=== PATIENT | female | born 1985 | race Caucasian/White ===

== ENCOUNTER 2020-10-03 19:17 | Inpatient (IN) ==
[2020-10-03] MEDS ORDERED: CAPTOPRIL 12.5 MG TABLET PO PRN (20:27)
[2020-10-03] MEDS ORDERED: LABETALOL 5 MG/ML ML IV ONE (20:28)
[2020-10-03] MEDS ORDERED: 0.9 % SODIUM CHLORIDE 1,000 ML IV ONE (20:41)
[2020-10-03] MEDS ORDERED: CAPTOPRIL 12.5 MG TABLET PO SCH (21:00)
[2020-10-03] MEDS ORDERED: CAPTOPRIL 12.5 MG TABLET PO ONE (21:14)
[2020-10-03 21:31] LABS: Basophils # (Auto) 0.04 K/mcL (0.00-0.20); Basophils % (Auto) 0.4 % (0.0-2.0); Hematocrit 38.6 % (36.0-48.0); Hemoglobin 13.9 g/dL (12.0-15.0); Lymphocytes # (Auto) 2.37 K/mcL (1.50-4.80); Lymphocytes % (Auto) 23.9 % (15.0-49.0); Mean Cell Volume 91.5 fL (80.0-100.0); Mean Platelet Volume 10.1 fL (7.4-10.4); Monocytes % (Auto) 7.1 % (1.0-12.0); Neutrophils % (Auto) 67.6 % (38.0-78.0); Platelet Count 368 K/mcL (140-440); RBC 4.22 M/mcL (4.00-5.20); Red Cell Distribution Width 13.6 % (11.5-14.5); WBC 9.9 K/mcL (4.5-11.0)
[2020-10-03 21:35] LABS: Appearance,Urine CLEAR (Clear); Bilirubin,Urine Negative (Negative); Color,Urine STRAW; Culture Indicated,Urine No; Glucose,Urine (UA) Negative (Negative); Ketones,Urine 20 mg/dL (Negative); Leukocyte Esterase,Urine Negative /ug (Negative); Nitrate,Urine Negative (Negative); Protein,Urine Negative (Negative); Specific Gravity,Urine 1.004 (1.000-1.035); Urine Blood Negative (Negative); Urobilinogen,Urine Negative
--- NOTE | 2020-10-03 21:43 | Internal Med History&Physical ---
HPI History of Present Illness Patient information: Note initiated : 10/03/20 at 9:41 pm Service Date, if different from initiated Date: [] Patient: Yulissa Kern a 34 y/o F admitted on for racing heart all day. Chief Complaint: [lightheadedness and palpitation] History of present illness: Ms. Kern is a 34 year old F history of ADD and recently diagnosed scleroderma presenting with 1 day history of palpitations, lightheadedness and dizziness. Over the past 2 days, she have noticed both her blood pressure and heart rate rate very elevated. She has been also feeling lightheadedness, dizziness, and palpitations for the entirety of today. She denies any chest pain. She has been noticed herself to be taking rapid short of breath. Due to her symptoms, she presented to Dr. Gimenez her manager utilization management and she was told to come to our ER for further evaluation and treatments. Vital signs significant for tachycardia with heart rate up to the 150s beats per minutes as well as elevated blood pressures as high as 180/107 mmHg. Labs were pending at time of dictations. Constitutional Constitutional: Present fatigue and weakness; Absent chills, excessive sweating and fever(s) EENT Eyes: Absent blurry vision, change in vision, loss of vision and other visual d isturbances Ears: Absent decreased hearing and tinnitus Nose, mouth and throat: Absent abnormal hearing, dry mouth, headache(s), nasal congestion and sore throat Cardiovascular Cardiovascular: Present lightheadedness and palpatations; Absent chest pain, chest pain at rest, edema and irregular heart rhythm Respiratory Respiratory: Absent cough, dyspnea and wheezing Gastrointestinal Gastrointestinal: Absent abdominal pain, constipation, diarrhea, nausea and v omiting Musculoskeletal Musculoskeletal: Absent back pain, deformity, limited range of motion, muscle cramps, muscle weakness and numbness Integumentary Integumentary: Absent lesions, rash and wounds Neurological Neurological: Present dizziness and weakness; Absent focal weakness, headache(s) and numbness Psychiatric Psychiatric: Absent anxiety, depression and hallucinations PFSH PFSH All Active Problems (Updated 10/03/20 @ 21:48 by Nathaniel Scott MD) Tachycardia with hypertension (Acute) Hypertension (Acute) Fatigue (Acute) Seasonal allergies (Chronic) ADD (attention deficit disorder) (Chronic) Screening for lipid disorders (Acute) Influenza vaccine refused (Chronic) Adjustment disorder with mixed anxiety and depressed mood (Chronic) Carpal tunnel syndrome (Acute) Joint pain (Acute) Finger swelling (Acute) Finger dislocation (Acute) Hemorrhoid (Acute) Rectal leakage (Acute) Lower extremity edema (Acute) Discolored skin (Acute) Weakness of pelvic floor (Acute) Elevated antinuclear antibody (JACOB) level (Acute) Inflammatory polyarthritis (Acute) Encounter for long-term current use of high risk medication (Acute) Elevated blood pressure reading in office with diagnosis of hypertension (Acute) Scleroderma (Acute) Leg weakness, bilateral (Acute) Raynaud phenomenon (Acute) Dysuria (Acute) Medical History ADD (attention deficit disorder) 05/22/19 PHQ 9=13. ASRS , . Suspect ADD, discussed with patient, plan to check labs today and follow-up in 1 week to discuss medication options 05/29/19 PHQ 9=19. Deteriorated, discussed discussed options including Strattera, Wellbutrin, stimulant medication, she is leaning toward Wellbutrin, we discussed use, rationale and side effects. She will discuss with her and get back to me 06/26/2019 improved with Strattera 25, continue, discussed increasing dose when she feels appropriate, follow-up 4 to 6 weeks, sooner if needed 07/31/2019 improved and stable on 10 mg of Strattera, she would at some point consider going up on the dose should the 10 mg stop working, we will discussed that if the time occurs. Follow-up in 3 months for physical and follow-up on ADD, follow-up sooner for concerns or questions 10/29/2019 stable on Strattera 10, continue dose and follow-up next available Sunday for physical 11/14/2019 stable on Strattera 10, follow-up after the end of the semester, sooner if needed 03/19/2020. Deteriorated slightly, start Strattera twice a day, discussed possible side effects, follow-up 6 months, sooner if needed 05/21/2020 stable on Strattera 10 twice a day, refilled, keep scheduled follow-up appointment for 08/12/2020 okay to take Strattera twice a day as before, do not believe this is causing/contributing elevated blood pressure Carpal tunnel syndrome Encounter for long-term current use of high risk medication Joint pain 06/22/2020 check labs, discussed differential, consult with rheumatology Leg weakness, bilateral Raynaud phenomenon Scleroderma Raynaud's syndrome, positive biomarkers. No evidence of Raynaud's crisis. Seasonal allergies Vaginal discharge Surgical History No pertinent past surgical history Family History Family/Other Arthritis Aunt ADD (attention deficit disorder) Cousin Grandmother Diabetes Maternal & Paternal Stroke Paternal Brother High blood pressure Father High blood pressure Grandfather Heart attack Paternal Son ADD (attention deficit disorder) Social History adopted: No caregiver/support person: No foster care: No household members: family housing: house lives independently: Yes marital status: education level: college service: No residential: No occupational status: employed and other occupation: SAHM/Substitute occupational exposures/hazards: No pets and animals: Yes pets and animals: dog(s) leisure activities: exercise hx recent travel: No sexually active: Yes smoking status: Never smoker alcohol intake frequency: does not drink substance use type: does not use MEDS/ALLERGIES Home Medications and Allergies Home Medications Medication Instructions Recorded Confirmed Type multivitamin 2 tab PO QAM tab 05/19/19 09/23/20 History [id number] vegatarian capsulse .ROUTE 07/15/20 09/23/20 History triamcinolone acetonide 55 mcg 1 spray INTRANASAL QDAY PRN 09/02/20 09/23/20 History nasal spray aerosol atomoxetine 10 mg capsule 10 mg PO QAM #60 cap 09/10/20 09/23/20 Rx mycophenolate mofetil 500 mg tablet See Rx Instructions .ROUTE 09/15/20 09/23/20 Rx .COMPLEX #120 tab omega-3 fatty acids 1,000 mg 1,000 mg PO QDAY 09/15/20 09/23/20 History capsule captopril 25 mg tablet 12.5 mg PO Q12H #90 tab 10/03/20 Rx Allergies Allergy/AdvReac Type Severity Reaction Status Date / Time cat dander Allergy Unknown itchy Verified 10/03/20 19:20 eyes, nose, throat copper Allergy Unknown rash Verified 10/03/20 19:20 Nickel Allergy Unknown rash Verified 10/03/20 19:20 EXAM Constitutional Vitals: Temp Pulse Resp BP Pulse Ox 36.8 C 93 H 17 137/98 98 10/03/20 19:17 10/03/20 21:16 10/03/20 21:16 10/03/20 21:16 10/03/20 21:16 General appearance: cooperative and no acute distress Head Head exam: Present atraumatic and normocephalic Eye Eye exam: Present EOMI and PERRL ENT ENT exam: Present mucous membranes moist, normal exam and normal external ear exam Neck Neck exam: Present normal inspection; Absent lymphadenopathy, tenderness and thyromegaly Respiratory Respiratory exam: Absent accessory muscle use, respiratory distress and wheezes Cardiovascular Cardiovascular exam: Present tachycardia; Absent JVD GI/Abdominal GI/Abdominal exam: Present normal bowel sounds and soft; Absent organomegaly and tenderness Extremities Exam Extremities exam: Present full ROM, normal capillary refill and normal inspection; Absent tenderness Neurological Exam Neurological exam: Present alert, CN II-XII intact and oriented X3; Absent motor sensory deficit Psychiatric Psychiatric exam: Present normal affect and normal mood; Absent anxious and depr essed Skin Skin exam: Present dry and intact Additional comments: thciken skins especially around her fingers DATA Data Completed and Pending Labs: Labs from last 24 hours 10/03/20 10/03/20 10/03/20 20:57 20:57 20:56 WBC RBC Hgb Hct MCV MCH MCHC RDW Plt Count MPV Neut % (Auto) Lymph % (Auto) [place] % (Auto) Eos % (Auto) Baso % (Auto) Lymph # (Auto) [place] # (Auto) Eos # (Auto) Baso # (Auto) Absolute Neutrophils Sodium Potassium Chloride Carbon Dioxide Anion Gap BUN Creatinine GFR Calculation Glucose Calcium Total Bilirubin AST ALT Alkaline Phosphatase Troponin T Total Protein Albumin Globulin Albumin/Globulin Ratio Urine Color Straw Urine Appearance Clear Urine pH 7.0 Ur Specific [place] 1.004 Urine Protein Negative Urine Glucose (UA) Negative Urine Ketones 20 A Urine Occult Blood Negative Urine Nitrate Negative Urine Bilirubin Negative Urine Urobilinogen Negative Ur Leukocyte Esterase Negative Ur Culture Indicated? No Ur Random Creatinine Pending U Random Total Protein Pending 0710/03/20 10/03/20 20:35 20:35 20:35 WBC 9.9 RBC 4.22 Hgb 13.9 Hct 38.6 MCV 91.5 MCH 32.9 MCHC 36.0 RDW 13.6 Plt Count 368 MPV 10.1 Neut % (Auto) 67.6 Lymph % (Auto) 23.9 [place] % (Auto) 7.1 Eos % (Auto) 1.0 Baso % (Auto) 0.4 Lymph # (Auto) 2.37 [place] # (Auto) 0.70 Eos # (Auto) 0.10 Baso # (Auto) 0.04 Absolute Neutrophils 6.71 Sodium TNP Potassium TNP Chloride TNP Carbon Dioxide TNP Anion Gap TNP BUN TNP Creatinine TNP GFR Calculation TNP Glucose TNP Calcium TNP Total Bilirubin TNP AST TNP ALT TNP Alkaline Phosphatase TNP Troponin T TNP Total Protein TNP Albumin TNP Globulin TNP Albumin/Globulin Ratio TNP Urine Color Urine Appearance Urine pH Ur Specific [place] Urine Protein Urine Glucose (UA) Urine Ketones Urine Occult Blood Urine Nitrate Urine Bilirubin Urine Urobilinogen Ur Leukocyte Esterase Ur Culture Indicated? Ur Random Creatinine U Random Total Protein A/P Assessment and plan (1) ADD (attention deficit disorder): Status: Chronic Comment: 05/22/19 PHQ 9=13. ASRS , . Suspect ADD, discussed with patient, plan to check labs today and follow-up in 1 week to discuss medication options 05/29/19 PHQ 9=19. Deteriorated, discussed discussed options including Strattera, Wellbutrin, stimulant medication, she is leaning toward Wellbutrin, we discussed use, rationale and side effects. She will discuss with her and get back to me 06/26/2019 improved with Strattera 25, continue, discussed increasing dose when she feels appropriate, follow-up 4 to 6 weeks, sooner if needed 07/31/2019 improved and stable on 10 mg of Strattera, she would at some point consider going up on the dose should the 10 mg stop working, we will discussed that if the time occurs. Follow-up in 3 months for physical and follow-up on ADD, follow-up sooner for concerns or questions 10/29/2019 stable on Strattera 10, continue dose and follow-up next available [place] for physical 11/14/2019 stable on Strattera 10, follow-up after the end of the semester, sooner if needed 03/19/2020. Deteriorated slightly, start Strattera twice a day, discussed possible side effects, follow-up 6 months, sooner if needed 05/21/2020 stable on Strattera 10 twice a day, refilled, keep scheduled follow-up appointment for 08/12/2020 okay to take Strattera twice a day as before, do not believe this is causing/contributing elevated blood pressure (2) Scleroderma: Status: Acute Comment: Raynaud's syndrome, positive biomarkers. No evidence of Raynaud's crisis. (3) Hypertension: Status: Acute (4) Tachycardia with hypertension: Status: Acute Narrative A/P Narrative: Assessment and Plans: 1. Scleroderma with hypertension and tachycardia: Admit to inpatient PCU with cardiac monitoring Consult gilberto Patino. appreciated Metoprolol tartrate 100mg PO BID scheduled Lopressor 5mg IV q5min PRN HR>=120bpm, hold if SBP<90 and/or DBP<50mmHg Captopril 12.5mg PO q8hr Continue CellCept 2. ADD: Continue Atomoxetine GI ppx: not currently indicated DVT ppx: Lovenox Code status: Full Prognosis: guarded Disposition: inpatient PCU Time Spent With Patient Time: Total time spent is greater than 50% in coordination of care (as documen omer) at patient's floor/unit and/or counseling patient: Total time spent with greater than 50% in coordination of care (as documented) at patient's floor/unit and/or counseling patient:: 25 - 35 minutes
[2020-10-03] MEDS ORDERED: SENNOSIDES 1 TABLET PO PRN (22:22)
[2020-10-03] MEDS ORDERED: ONDANSETRON 4 MG/2 ML VIAL IV PRN (22:22)
[2020-10-03] MEDS ORDERED: METOPROLOL TARTRATE 5 MG/5 ML VIAL IV PRN (22:22)
[2020-10-03] MEDS ORDERED: LACTULOSE 20 GM/30 ML ORAL.SOL PO PRN (22:22)
[2020-10-03] MEDS ORDERED: ACETAMINOPHEN 325 MG TABLET PO PRN (22:22)
[2020-10-03 22:26] LABS: ALT/SGPT 15 U/L (<40); AST/SGOT 18 U/L (<32); Albumin 3.5 gm/dL (3.2-5.2); Albumin/Globulin Ratio 1.5 (1.0-2.3); Alkaline Phosphatase 65 U/L (39-117); Bilirubin,Total 0.3 mg/dL (0.1-1.0); Blood Urea Nitrogen 10 mg/dL (6-20); Calcium 8.2 mg/dL (8.6-10.4); Carbon Dioxide 23 mmol/L (22-30); Chloride 103 mmol/L (96-108); Globulin 2.3 gm/dL (2.2-3.7); Glomerular Filtration Rate 112; Glucose 97 mg/dL (70-105)
--- NOTE | 2020-10-03 22:33 | Emergency Department Note ---
Arrhythmia/Palpitations HPI General Chief Complaint: Arrhythmia/Palpitations Stated Complaint: racing heart all day Time Seen by Provider: 10/03/20 19:50 Source: patient Mode of arrival: ambulatory Limitations: no limitations History of Present Illness HPI Narrative: Narrative: 34-year-old female presents emerged department accompanied by a friend who is a nurse because of tachycardia and hyper per tension. Patient states that she was diagnosed with diffuse scleroderma 8 weeks ago perhaps longer. She has been treated for hypertension due to this by Dr. Gimenez ([phone]). She is followed by the principal trainer Dr. Ingris last ([phone]). Her blood pressure has been in the acceptable range but today she woke up and had a blood pressure of 203/133. She felt dizzy with that. She said she felt lightheaded, tired, fatigued and that her heart was racing. Her heart rate went up as fast as 153 at home. She describes her discomfort as a 5 on a 0-to-10 scale. Stated it was constant throughout the day. Nothing made it better or worse. She presents for further evaluation. MD Complaint: "heart racing" Duration: constant Severity: moderate Context: occurred during rest Related Data Home Medications Medication Instructions Recorded Confirmed multivitamin 1 tab PO QAM tab 05/19/19 10/03/20 triamcinolone acetonide 55 mcg 1 spray INTRANASAL QDAY PRN 09/02/20 10/03/20 nasal spray aerosol Previous Rx's Medication Instructions Recorded atomoxetine 10 mg capsule 10 mg PO QAM #60 cap 09/10/20 mycophenolate mofetil 500 mg tablet See Rx Instructions .ROUTE 09/15/20 .COMPLEX #120 tab captopril 25 mg tablet 12.5 mg PO Q12H #90 tab 10/03/20 Allergies Allergy/AdvReac Type Severity Reaction Status Date / Time cat dander Allergy Unknown itchy Verified 10/03/20 19:20 eyes, nose, throat copper Allergy Unknown rash Verified 10/03/20 19:20 Nickel Allergy Unknown rash Verified 10/03/20 19:20 Review of Systems ROS ROS Narrative: Narrative: Constitutional: Denies fever ENT ED: Denies throat pain Cardiovascular: Reports palpitations (Rapid heart rate.) Respiratory: Denies shortness of breath Gastrointestinal: Denies abdominal pain Genitourinary: Denies dysuria Musculoskeletal: Denies back pain Integumentary: Denies rash Neurological: Denies headache Psychiatric: Reports anxiety Hematological/Lymphatic: Denies easy bleeding PFSH Narrative Patient History Narrative: Narrative: Medical/Surgical/Family History All Active Problems (Updated 10/04/20 @ 09:01 by Mak Haddad MD) Hypertension (Acute) Tachycardia (Acute) Tachycardia with hypertension (Acute) Hypertension (Acute) Fatigue (Acute) Seasonal allergies (Chronic) ADD (attention deficit disorder) (Chronic) Screening for lipid disorders (Acute) Influenza vaccine refused (Chronic) Adjustment disorder with mixed anxiety and depressed mood (Chronic) Carpal tunnel syndrome (Acute) Joint pain (Acute) Finger swelling (Acute) Finger dislocation (Acute) Hemorrhoid (Acute) Rectal leakage (Acute) Lower extremity edema (Acute) Discolored skin (Acute) Weakness of pelvic floor (Acute) Elevated antinuclear antibody (JACOB) level (Acute) Inflammatory polyarthritis (Acute) Encounter for long-term current use of high risk medication (Acute) Elevated blood pressure reading in office with diagnosis of hypertension (Acute) Scleroderma (Acute) Leg weakness, bilateral (Acute) Raynaud phenomenon (Acute) Dysuria (Acute) Medical History ADD (attention deficit disorder) 05/22/19 PHQ 9=13. ASRS , . Suspect ADD, discussed with patient, plan to check labs today and follow-up in 1 week to discuss medication options 05/29/19 PHQ 9=19. Deteriorated, discussed discussed options including Strattera, Wellbutrin, stimulant medication, she is leaning toward Wellbutrin, we discussed use, rationale and side effects. She will discuss with her and get back to me 06/26/2019 improved with Strattera 25, continue, discussed increasing dose when she feels appropriate, follow-up 4 to 6 weeks, sooner if needed 07/31/2019 improved and stable on 10 mg of Strattera, she would at some point consider going up on the dose should the 10 mg stop working, we will discussed that if the time occurs. Follow-up in 3 months for physical and follow-up on ADD, follow-up sooner for concerns or questions 10/29/2019 stable on Strattera 10, continue dose and follow-up next available Sunday for physical 11/14/2019 stable on Strattera 10, follow-up after the end of the semester, sooner if needed 03/19/2020. Deteriorated slightly, start Strattera twice a day, discussed possible side effects, follow-up 6 months, sooner if needed 05/21/2020 stable on Strattera 10 twice a day, refilled, keep scheduled follow-up appointment for 08/12/2020 okay to take Strattera twice a day as before, do not believe this is causing/contributing elevated blood pressure Carpal tunnel syndrome Encounter for long-term current use of high risk medication Joint pain 06/22/2020 check labs, discussed differential, consult with rheumatology Leg weakness, bilateral Raynaud phenomenon Scleroderma Raynaud's syndrome, positive biomarkers. No evidence of Raynaud's crisis. Seasonal allergies Vaginal discharge Surgical History No pertinent past surgical history Family History Family/Other Arthritis Aunt ADD (attention deficit disorder) Cousin Grandmother Diabetes Maternal & Paternal Stroke Paternal Brother High blood pressure Father High blood pressure Grandfather Heart attack Paternal Son ADD (attention deficit disorder) Social History Smoking Status: Never smoker Alcohol Intake Frequency: does not drink Substance Use: does not use Exam Narrative Narrative: Narrative: General Limitations: no limitations General appearance: Present alert and in distress Head Head: Present atraumatic and normocephalic Eye Eye: Present EOMI ENT ENT: Present normal oropharynx and mucous membranes moist Neck Neck: Present trachea midline Respiratory Respiratory: Present normal lung sounds bilaterally; Absent respiratory distress Cardiovascular Cardiovascular: Present tachycardia Adbominal Abdominal: Present soft; Absent distention Extremities Extremities: Present normal inspection Back Back: Present normal inspection Neurological Neurological: Present alert and oriented X3 Psychiatric Psychiatric: Present normal affect and normal mood Skin Skin: Present warm (WNL) and dry Course Reevaluation(s) Reevaluation #1: After the IV labetalol the patient's blood pressure came down into the 130s over 100 range. It seemed to stay in that range and did not req uire an additional dose. Consultations Consultation #1: Discussed with Dr. Juarez the hospitalist who agreed to admit the patient. He requested that I perform a urine tox screen which I ordered at his request. Vital Signs Vital signs: Vital Signs Temperature 98.2 F 10/03/20 19:17 Pulse Rate 153 H 10/03/20 19:17 Respiratory Rate 24 H 10/03/20 19:17 Blood Pressure 174/107 10/03/20 19:17 Pulse Oximetry (%) 100 10/03/20 19:17 Temperature 97.9 F 10/04/20 08:00 Pulse Rate 89 10/04/20 08:00 Respiratory Rate 16 10/04/20 08:00 Blood Pressure 129/99 10/04/20 08:00 Pulse Oximetry (%) 99 10/04/20 08:00 MDM MDM Narrative Medical decision making narrative: Narrative: 34-year-old female presents emerged department with tachycardia and elevated blood pressure. Patient recently diagnosed with diffuse scleroderma and being managed for this in part by Dr. Gimenez. Differential diagnosis could include substance abuse, dehydration, anemia, renal artery disease. I called Dr. Gimenez and discussed the case with him. He raised the concern that the patient could be going into scleroderma crisis which can cause acute renal failure and proteinuria he advised that the patient be admitted to the hospital. He recommended the patient be given beta-blockers to bring down the heart rate. He advised captopril 12.5 mg p.o. every 8 hours. He requested a UA be obtained as well as a random urine protein creatinine ratio. He agreed to follow the patient and recommended a consult the hospitalist for admission. That was done. I gave the patient labetalol 20 mg IV for her hypertension as well as her rapid heart rate is brought her blood pressure down into an acceptable range and her heart rate slowed as well. Case was discussed with the hospitalist who accepted the patient and admitted her for further care. Lab Data Result diagrams: 10/04/20 05:13 10/04/20 05:13 Labs: Lab Results 10/03/20 10/03/20 10/03/20 Range/Units 00:42 20:35 20:35 WBC 9.9 (4.5-11.0) K/mcL RBC 4.22 (4.00-5.20) M/mcL Hgb 13.9 (12.0-15.0) g/dL Hct 38.6 (36.0-48.0) % MCV 91.5 (80.0-100.0) fL MCH 32.9 (26.0-34.0) pg MCHC 36.0 (31.0-36.0) g/dL RDW 13.6 (11.5-14.5) % Plt Count 368 (140-440) K/mcL MPV 10.1 (7.4-10.4) fL Neut % (Auto) 67.6 (38.0-78.0) % Lymph % (Auto) 23.9 (15.0-49.0) % Bleck[place] % (Auto) 7.1 (1.0-12.0) % Eos % (Auto) 1.0 (0.0-7.0) % Baso % (Auto) 0.4 (0.0-2.0) % Lymph # (Auto) 2.37 (1.50-4.80) K/mcL Bleck[place] # (Auto) 0.70 (0.10-0.90) K/mcL Eos # (Auto) 0.10 (0.00-0.70) K/mcL Baso # (Auto) 0.04 (0.00-0.20) K/mcL Absolute Neutrophils 6.71 (1.80-8.00) K/mcL Sodium TNP Potassium TNP Chloride TNP Carbon Dioxide TNP Anion Gap TNP BUN TNP Creatinine TNP GFR Calculation TNP Glucose TNP Calcium TNP Total Bilirubin TNP AST TNP ALT TNP Alkaline Phosphatase TNP Troponin T Total Protein TNP Albumin TNP Globulin TNP Albumin/Globulin Ratio TNP Urine Color Urine Appearance (Clear) Urine pH (5.0-9.0) Ur Specific Gentry (1.000-1.035) Urine Protein (Negative) mg/dL Urine Glucose (UA) (Negative) mg/dL Urine Ketones (Negative) mg/dL Urine Occult Blood (Negative) mg/dL Urine Nitrate (Negative) Urine Bilirubin (Negative) mg/dL Urine Urobilinogen mg/dL Ur Leukocyte Esterase (Negative) /ug Ur Culture Indicated? Ur Random Creatinine (28.0-217.0) mg/dL U Random Total Protein mg/dL Urine Opiates Screen None detected Ur Opiates Confirm TNP Ur Oxycodone Screen None detected Urine Methadone Screen None detected Ur Methadone Confirm TNP Ur Barbiturates Screen None detected Ur Barbiturate Confirm TNP Ur Phencyclidine Scrn None detected Urine PCP Confirm TNP Ur Amphetamines Screen None detected U Amphetamines Confirm TNP U Benzodiazepines Scrn None detected U Benzodiazepine Confm TNP Urine Cocaine Screen None detected Urine Cocaine Confirm TNP U Cannabinoids Confirm TNP U Marijuana (THC) Screen None detected 10/03/20 10/03/20 10/03/20 Range/Units 20:35 20:56 20:57 WBC (4.5-11.0) K/mcL RBC (4.00-5.20) M/mcL Hgb (12.0-15.0) g/dL Hct (36.0-48.0) % MCV (80.0-100.0) fL MCH (26.0-34.0) pg MCHC (31.0-36.0) g/dL RDW (11.5-14.5) % Plt Count (140-440) K/mcL MPV (7.4-10.4) fL Neut % (Auto) (38.0-78.0) % Lymph % (Auto) (15.0-49.0) % Bleck[place] % (Auto) (1.0-12.0) % Eos % (Auto) (0.0-7.0) % Baso % (Auto) (0.0-2.0) % Lymph # (Auto) (1.50-4.80) K/mcL Bleckley # (Auto) (0.10-0.90) K/mcL Eos # (Auto) (0.00-0.70) K/mcL Baso # (Auto) (0.00-0.20) K/mcL Absolute Neutrophils (1.80-8.00) K/mcL Sodium Potassium Chloride Carbon Dioxide Anion Gap BUN Creatinine GFR Calculation Glucose Calcium Total Bilirubin AST ALT Alkaline Phosphatase Troponin T TNP Total Protein Albumin Globulin Albumin/Globulin Ratio Urine Color Straw Urine Appearance Clear (Clear) Urine pH 7.0 (5.0-9.0) Ur Specific Gentry 1.004 (1.000-1.035) Urine Protein Negative (Negative) mg/dL Urine Glucose (UA) Negative (Negative) mg/dL Urine Ketones 20 A (Negative) mg/dL Urine Occult Blood Negative (Negative) mg/dL Urine Nitrate Negative (Negative) Urine Bilirubin Negative (Negative) mg/dL Urine Urobilinogen Negative mg/dL Ur Leukocyte Esterase Negative (Negative) /ug Ur Culture Indicated? No Ur Random Creatinine (28.0-217.0) mg/dL U Random Total Protein < 4 mg/dL Urine Opiates Screen Ur Opiates Confirm Ur Oxycodone Screen Urine Methadone Screen Ur Methadone Confirm Ur Barbiturates Screen Ur Barbiturate Confirm Ur Phencyclidine Scrn Urine PCP Confirm Ur Amphetamines Screen U Amphetamines Confirm U Benzodiazepines Scrn U Benzodiazepine Confm Urine Cocaine Screen Urine Cocaine Confirm U Cannabinoids Confirm U Marijuana (THC) Screen 10/03/20 10/03/20 10/03/20 Range/Units 20:57 21:47 21:48 WBC (4.5-11.0) K/mcL RBC (4.00-5.20) M/mcL Hgb (12.0-15.0) g/dL Hct (36.0-48.0) % MCV (80.0-100.0) fL MCH (26.0-34.0) pg MCHC (31.0-36.0) g/dL RDW (11.5-14.5) % Plt Count (140-440) K/mcL MPV (7.4-10.4) fL Neut % (Auto) (38.0-78.0) % Lymph % (Auto) (15.0-49.0) % Bleck[place] % (Auto) (1.0-12.0) % Eos % (Auto) (0.0-7.0) % Baso % (Auto) (0.0-2.0) % Lymph # (Auto) (1.50-4.80) K/mcL [place] # (Auto) (0.10-0.90) K/mcL Eos # (Auto) (0.00-0.70) K/mcL Baso # (Auto) (0.00-0.20) K/mcL Absolute Neutrophils (1.80-8.00) K/mcL Sodium 136 Potassium 3.4 Chloride 103 Carbon Dioxide 23 Anion Gap 10.0 BUN 10 Creatinine 0.7 GFR Calculation 112 Glucose 97 Calcium 8.2 L Total Bilirubin 0.3 AST 18 ALT 15 Alkaline Phosphatase 65 Troponin T < 0.01 Total Protein 5.8 L Albumin 3.5 Globulin 2.3 Albumin/Globulin Ratio 1.5 Urine Color Urine Appearance (Clear) Urine pH (5.0-9.0) Ur Specific Gentry (1.000-1.035) Urine Protein (Negative) mg/dL Urine Glucose (UA) (Negative) mg/dL Urine Ketones (Negative) mg/dL Urine Occult Blood (Negative) mg/dL Urine Nitrate (Negative) Urine Bilirubin (Negative) mg/dL Urine Urobilinogen mg/dL Ur Leukocyte Esterase (Negative) /ug Ur Culture Indicated? Ur Random Creatinine 26.6 L (28.0-217.0) mg/dL U Random Total Protein mg/dL Urine Opiates Screen Ur Opiates Confirm Ur Oxycodone Screen Urine Methadone Screen Ur Methadone Confirm Ur Barbiturates Screen Ur Barbiturate Confirm Ur Phencyclidine Scrn Urine PCP Confirm Ur Amphetamines Screen U Amphetamines Confirm U Benzodiazepines Scrn U Benzodiazepine Confm Urine Cocaine Screen Urine Cocaine Confirm U Cannabinoids Confirm U Marijuana (THC) Screen ED POC Tests ED POC Tests: CHRISSY - SARS Antigen Negative EKG Data EKG #1: EKG attestation: Yes I reviewed and interpreted this EKG. EKG shows normal: sinus rhythm Rate: tachycardia ST segment elevation in: None ST segment depression in: None Hyperacute T waves: None Interpretation: other (Abnormal EKG sinus tachycardia) Discharge Plan Patient/Caregiver Discharge Instructions Pt seen by PRESS MANAGER/PA only: No Clinical Impression: Tachycardia Hypertension Qualifiers: Hypertension type: unspecified secondary hypertension Qualified Code(s): I15.9 - Secondary hypertension, unspecified Patient Disposition: Xfer As Inpt ([facility]) Condition: Fair Discharge Date/Time: 10/03/20 22:28
[2020-10-03] MEDS: 0.9 % SODIUM CHLORIDE 10 ML SYRINGE IV SCH (23:00)
[2020-10-04] MEDS ORDERED: ACETAMINOPHEN 325 MG TABLET PO ONE (00:56)
[2020-10-04 01:12] LABS: Amphetamine Screen,Urine None detected; Barbiturate Screen,Urine None detected; Benzodiazepines Screen,Urine None detected; Cannabinoid Screen,Urine None detected; Cocaine Screen,Urine None detected; Opiate Screen,Urine None detected; Oxycodone, Urine Screen None detected; Phencyclidine Screen,Urine None detected
[2020-10-04] MEDS: 0.9 % SODIUM CHLORIDE 10 ML SYRINGE IV SCH ×3 (05:15→22:30)
[2020-10-04] MEDS ORDERED: TRIAMCINOLONE ACETONIDE NAS PRN ×2 (06:12→10:48)
[2020-10-04] MEDS ORDERED: MYCOPHENOLATE 250 MG CAPSULE PO SCH ×3 (07:00→20:00)
[2020-10-04 07:48] LABS: Basophils # (Auto) 0.05 K/mcL (0.00-0.20); Basophils % (Auto) 0.6 % (0.0-2.0); Eosinophils % (Auto) 1.1 % (0.0-7.0); Hematocrit 35.6 % (36.0-48.0); Hemoglobin 12.4 g/dL (12.0-15.0); Lymphocytes # (Auto) 2.55 K/mcL (1.50-4.80); Lymphocytes % (Auto) 29.2 % (15.0-49.0); Mean Cell Volume 92.5 fL (80.0-100.0); Mean Corpuscular HGB Conc 34.8 g/dL (31.0-36.0); Mean Platelet Volume 9.7 fL (7.4-10.4); Monocytes # (Auto) 0.65 K/mcL (0.10-0.90); Monocytes % (Auto) 7.5 % (1.0-12.0); Neutrophils % (Auto) 61.6 % (38.0-78.0); Platelet Count 334 K/mcL (140-440); RBC 3.85 M/mcL (4.00-5.20); Red Cell Distribution Width 13.7 % (11.5-14.5); WBC 8.7 K/mcL (4.5-11.0)
--- NOTE | 2020-10-04 08:02 | Nephrology Consult Note ---
HPI Data of Consult Consult date: 10/03/20 Primary Care Provider: EJ Lynn Consult Narrative cc:: CC: Nathaniel Scott MD HPI: I have seen this patient one time in the clinic last month out of concern for high blood pressure in the setting of scleroderma. Previously noted by Dr. Amado, 34 year old female with history suggestive of scleroderma ( puffy hands, skin tautness on hands and feet, raynaud's phenomena, + nailfold dilated capillary loops, + JACOB 1:320 nuclear/homogenous, + RNA polymerase III Abs, arthralgias). She also have bilateral carpal tunnel syndrome. She reports improvement in joint pain and swelling in her hands and feet with the use of meloxicam and diuretic but her BP is consistently elevated. She received right wrist carpal tunnel steroid injection today in clinic. Please see separate procedure note for details. She needs work up for ILD and pulmonary arterial hypertension screening. She needs aggressive control of her blood pressure as this can be important risk factor for scleroderma renal crisis. Educated patient about diagnosis of scleroderma. Complexity in disease presentation, diagnosis and management were discussed. Obtain TTE, CXR and PFTs. Consider obtaining HRCT chest after PFT's. Discontinue meloxicam as this can be responsible for elevation in blood pressure. Advised patient to measure her blood pressure twice daily and make a log. She will notify us next week about her blood pressure reading. Consider initiation of STACIE inhibitors if she continues to have elevated blood pressure. Consider initiation of CellCept or methotrexate to target skin disease and arthralgias after above-mentioned evaluation. Interval Hx: In addition to meloxicam, she's been told the the atomoxetine (Strattera) could be involved in her HTN. The uptic in BP and pulse is correlated in time by the doubling of the dose of the Strattera and somewhat improved by stopping the LAZCANO II inhibitor. 2 pregnancies uncompliced by HTN, edema, proteinuria. Family Hx (+) for brother with early onset HTN as well as an aunt who had hyper tension that was worsened by Strattera, albeit at higher dose, and she was required to stop this medication. In terms of her ability to concentrate in school, she states that there is been up from the Strattera. Heart rate is high and labile today from 93 to 123/min. Echo is pending. Denies chest pain but describes palpitations off and on. Non-smoker, no illicit drug use. No related to suggest hyperaldosteronism, no sweating shakiness or palpitations as a constellation of symptoms to suggest pheochromocytoma. She does report weight loss since being on the Strattera. Pertinent work-up following the clinic visit of 08/2020: 24-hour ambulatory blood pressure measurement Laboratory Tests 09/02/20 Urine Color Pale Yellow Urine Clarity Clear Urine pH 7.0 Ur Specific [place] 1.015 Urine Protein Negative Urine Glucose (UA) Negative Urine Ketones Negative Urine Nitrate Negative Ur Leukocyte Esterase Negative Urine RBC Negative Urine Creatinine 10 mg/dL Protein/Creatinin Ratio Normal 08/19/20 08/19/20 15:38 15:38 WBC 15.1 H Hgb 14.0 Hct 40.6 Eos % (Auto) 1.1 Sodium 134 Potassium 4.4 Chloride 99 Carbon Dioxide 26 BUN 15 Creatinine 0.8 GFR Calculation 96 Calcium 9.1 06/22/20 Rheumatoid Factor < 10 Cycl Citrul Peptide IgG JACOB Screen Positive A JACOB Titer 1:320 H JACOB Pattern Nuclear, homogeneous A Anti-DNA Antibody Double Strand DNA Ab 1 Complement C3 Complement C4 Hep Bs Antigen Negative Hep B Core Total Ab Non-reactive Hepatitis C Antibody 07/15/20 Urine Color Yellow Urine Appearance Clear Urine pH 6.0 Ur Specific [place] 1.011 Urine Protein Negative Urine Glucose (UA) Negative Urine Ketones 5 A Urine Occult Blood Negative Rheumatoid Factor Cycl Citrul Peptide IgG < 16 JACOB Screen JACOB Titer JACOB Pattern Anti-DNA Antibody 1 Double Strand DNA Ab Complement C3 115.6 Complement C4 21.2 Hep Bs Antigen Hep B Core Total Ab Hepatitis C Antibody Non-reactive Laboratory Tests 09/02/20 11:03 Renin Activity 4.99 Aldosterone 37 H Aldosterone/Renin Ratio 7.4 Renal U/S : 1. Both renal and segmental arteries are widely patent no evidence of stenosis. Resistive indices in both kidneys is normal 0.6. 2. Both renal veins are patent While out of town I received a phone call that she was concerned about renal scleroderma crisis as her blood pressure had been elevated. It is true that the presence of a positive RNA polymerase III Abs is almost exclusively seen in patients with scleroderma who have scleroderma crisis and is considered a risk factor for this event. I missed her in late August the absence of proteinuria, relatively normal blood pressure, normal renal ultrasound, and other potential explanations of episodic increases blood pressure were inconsistent with renal scleroderma crisis. The ED physician called me around 6:00 last evening relating a history of tachycardia and elevated blood pressure. There is no lab work back at that time but it seems clear that the possibility of the development of renal scleroderma crisis was present and she should be admitted for control of her blood pressure, including the use of captopril a tried and true medication with the most clinical data to suggest that she use in renal scleroderma crisis. Vital Signs Temp Pulse Resp BP BP Pulse Ox 10/04/20 08:00 36.6 C 89 16 129/99 99 10/04/20 06:00 98 H 22 132/93 100 10/04/20 04:01 37.2 C 105 H 12 120/76 100 10/04/20 02:01 97 H 14 126/87 100 10/04/20 01:01 95 H 29 H 136/107 100 10/04/20 00:31 36.9 C 101 H 15 135/83 100 10/04/20 00:01 97 H 15 137/101 100 10/03/20 23:31 97 H 12 150/108 100 10/03/20 23:01 95 H 13 134/94 100 10/03/20 22:46 95 H 16 134/93 100 10/03/20 22:31 94 H 17 139/93 100 10/03/20 22:26 98 H 146/99 100 10/03/20 22:19 37.1 C 18 146/99 98 10/03/20 22:16 95 H 17 143/91 98 10/03/20 22:01 37.1 C 94 H 15 132/110 99 10/03/20 21:50 96 H 12 137/100 99 10/03/20 21:31 97 H 20 137/102 99 10/03/20 21:16 93 H 17 137/98 98 10/03/20 21:01 93 H 17 133/100 99 10/03/20 21:00 91 H 16 129/94 99 10/03/20 20:53 95 H 10 L 156/112 98 10/03/20 20:52 95 H 18 139/100 99 10/03/20 20:45 139/100 10/03/20 20:31 127 H 18 168/117 100 10/03/20 20:16 117 H 15 180/107 99 10/03/20 20:07 118 H 11 L 164/98 99 10/03/20 19:17 36.8 C 153 H 24 H 174/107 100 Intake and Output 10/03/20 10/04/20 10/04/20 21:59 05:59 13:59 Intake Total 1000 240 Output Total 800 Balance 1000 -560 Intake: IV 1000 Sodium Chloride 0.9% 1,000 ml @ 1000 Wide Open IV BOLUS ONE Rx#: [id number] Oral 240 Output: Void Amount 800 Other: Meal [place] with crackers Percent of Meal Consumed 100% Feeding Ability Independent Urine Appearance Clear Urine Color Bright Yellow Urine Odor Normal Weight 63.503 kg 65.091 kg Laboratory Last Values WBC 8.7 K/mcL (4.5-11.0) 10/04/20 05:13 RBC 3.85 M/mcL (4.00-5.20) L 10/04/20 05:13 Hgb 12.4 g/dL (12.0-15.0) 10/04/20 05:13 Hct 35.6 % (36.0-48.0) L 10/04/20 05:13 MCV 92.5 fL (80.0-100.0) 10/04/20 05:13 MCH 32.2 pg (26.0-34.0) 10/04/20 05:13 MCHC 34.8 g/dL (31.0-36.0) 10/04/20 05:13 RDW 13.7 % (11.5-14.5) 10/04/20 05:13 Plt Count 334 K/mcL (140-440) 10/04/20 05:13 MPV 9.7 fL (7.4-10.4) 10/04/20 05:13 Neut % (Auto) 61.6 % (38.0-78.0) 10/04/20 05:13 Lymph % (Auto) 29.2 % (15.0-49.0) 10/04/20 05:13 [place] % (Auto) 7.5 % (1.0-12.0) 10/04/20 05:13 Eos % (Auto) 1.1 % (0.0-7.0) 10/04/20 05:13 Baso % (Auto) 0.6 % (0.0-2.0) 10/04/20 05:13 Lymph # (Auto) 2.55 K/mcL (1.50-4.80) 10/04/20 05:13 [place] # (Auto) 0.65 K/mcL (0.10-0.90) 10/04/20 05:13 Eos # (Auto) 0.10 K/mcL (0.00-0.70) 10/04/20 05:13 Baso # (Auto) 0.05 K/mcL (0.00-0.20) 10/04/20 05:13 Absolute Neutrophils 5.37 K/mcL (1.80-8.00) 10/04/20 05:13 Sodium 136 mmol/L (133-145) 10/03/20 21:48 Potassium 3.4 mmol/L (3.3-5.1) 10/03/20 21:48 Chloride 103 mmol/L (96-108) 10/03/20 21:48 Carbon Dioxide 23 mmol/L (22-30) 10/03/20 21:48 Anion Gap 10.0 (8.0-16.0) 10/03/20 21:48 BUN 10 mg/dL (6-20) 10/03/20 21:48 Creatinine 0.7 mg/dL (0.6-1.1) 10/03/20 21:48 GFR Calculation 112 10/03/20 21:48 Glucose 97 mg/dL (70-105) 10/03/20 21:48 Calcium 8.2 mg/dL (8.6-10.4) L 10/03/20 21:48 Total Bilirubin 0.3 mg/dL (0.1-1.0) 10/03/20 21:48 AST 18 U/L (<32) 10/03/20 21:48 ALT 15 U/L (<40) 10/03/20 21:48 Alkaline Phosphatase 65 U/L (39-117) 10/03/20 21:48 Troponin T < 0.01 ng/mL (<0.03) 10/03/20 21:47 Total Protein 5.8 gm/dL (5.9-8.4) L 10/03/20 21:48 Albumin 3.5 gm/dL (3.2-5.2) 10/03/20 21:48 Globulin 2.3 gm/dL (2.2-3.7) 10/03/20 21:48 Albumin/Globulin Ratio 1.5 (1.0-2.3) 10/03/20 21:48 Urine Color Straw 10/03/20 20:56 Urine Appearance Clear (Clear) 10/03/20 20:56 Urine pH 7.0 (5.0-9.0) 10/03/20 20:56 Ur Specific [place] 1.004 (1.000-1.035) 10/03/20 20:56 Urine Protein Negative mg/dL (Negative) 10/03/20 20:56 Urine Glucose (UA) Negative mg/dL (Negative) 10/03/20 20:56 Urine Ketones 20 mg/dL (Negative) A 10/03/20 20:56 Urine Occult Blood Negative mg/dL (Negative) 10/03/20 20:56 Urine Nitrate Negative (Negative) 10/03/20 20:56 Urine Bilirubin Negative mg/dL (Negative) 10/03/20 20:56 Urine Urobilinogen Negative mg/dL 10/03/20 20:56 Ur Leukocyte Esterase Negative /ug (Negative) 10/03/20 20:56 Ur Culture Indicated? No 10/03/20 20:56 Ur Random Creatinine 26.6 mg/dL (28.0-217.0) L 10/03/20 20:57 U Random Total Protein < 4 mg/dL 10/03/20 20:57 Urine Opiates Screen None detected 10/03/20 00:42 Ur Opiates Confirm TNP 10/03/20 00:42 Ur Oxycodone Screen None detected 10/03/20 00:42 Urine Methadone Screen None detected 10/03/20 00:42 Ur Methadone Confirm TNP 10/03/20 00:42 Ur Barbiturates Screen None detected 10/03/20 00:42 Ur Barbiturate Confirm TNP 10/03/20 00:42 Ur Phencyclidine Scrn None detected 10/03/20 00:42 Urine PCP Confirm TNP 10/03/20 00:42 Ur Amphetamines Screen None detected 10/03/20 00:42 U Amphetamines Confirm TNP 10/03/20 00:42 U Benzodiazepines Scrn None detected 10/03/20 00:42 U Benzodiazepine Confm TNP 10/03/20 00:42 Urine Cocaine Screen None detected 10/03/20 00:42 Urine Cocaine Confirm TNP 10/03/20 00:42 U Cannabinoids Confirm TNP 10/03/20 00:42 U Marijuana (THC) Screen None detected 10/03/20 00:42 Medications Acetaminophen (Acetaminophen 325 Mg Tablet) 650 mg PO Q6HP PRN; Protocol PRN Reason: Per Pain Protocol/Fever > 101 Last Admin: 10/04/20 00:54 Dose: 650 mg Documented by: Captopril (Captopril 12.5 Mg Tablet) 12.5 mg PO TID [facility] Docusate Sodium (Docusate Sodium 100 Mg Capsule) 100 mg PO BID [facility] Enoxaparin Sodium (Enoxaparin 40 Mg/0.4 Ml Syringe) 40 mg SQ DAILY [facility] Iron Carb/Multivit/Steam Distribution Supervisor/Folic Acid (Multivit,Ther Iron,Ca,Fa & Min 1 Tablet) 1 tab PO QAM [facility] Lactulose (Lactulose 20 Gm/30 Ml Oral.Aimee) 10 gm PO DAILYP PRN PRN Reason: Constipation Metoprolol Tartrate (Metoprolol Tartrate 50 Mg Tablet) 100 mg PO BID [facility] Metoprolol Tartrate (Metoprolol Tartrate 5 Mg/5 Ml Vial) 5 mg IV Q5M PRN PRN Reason: Tachyarrhythmias Non-Formulary Medication (Mycophenolate Mofetil [Cellcept]) see rx instructions tab .ROUTE .COMPLEX [facility] Ondansetron HCl (Ondansetron 4 Mg/2 Ml Vial) 4 mg IV Q4HP PRN; Protocol PRN Reason: Nausea And Vomiting Atomoxetine [ Strattera] 10 Mg Capsule 1 dose PO QAM [facility] Triamcinolone Acetonide [Nasacort] Familia Inh 1 dose FAMILIA DAILYP PRN PRN Reason: Allergic Symptoms Senna (Sennosides 1 Tablet) 2 tab PO HSP PRN PRN Reason: Constipation Sodium Chloride (0.9 % Sodium Chloride 10 Ml Syringe) 10 ml IV Q8 [facility] Last Admin: 10/04/20 05:15 Dose: 10 ml Documented by: Review of Systems All systems: reviewed and no additional remarkable complaints except as stated Constitutional Constitutional: Present other Additional comments: Anxiety Cardiovascular Cardiovascular: Present as per HPI and rapid heart rate Additional comments: Increasing blood pressure over the past month or so No benefit to 50% reduction in her ADD medication Psychiatric Psychiatric: Present anxiety PFSH PFSH All Active Problems Fatigue (Acute) Hypertension (Acute) Tachycardia with hypertension (Acute) Hypertension (Acute) Tachycardia (Acute) Dysuria (Acute) Seasonal allergies (Chronic) ADD (attention deficit disorder) (Chronic) Screening for lipid disorders (Acute) Influenza vaccine refused (Chronic) Adjustment disorder with mixed anxiety and depressed mood (Chronic) Carpal tunnel syndrome (Acute) Joint pain (Acute) Finger swelling (Acute) Finger dislocation (Acute) Hemorrhoid (Acute) Rectal leakage (Acute) Lower extremity edema (Acute) Discolored skin (Acute) Weakness of pelvic floor (Acute) Elevated antinuclear antibody (JACOB) level (Acute) Inflammatory polyarthritis (Acute) Encounter for long-term current use of high risk medication (Acute) Elevated blood pressure reading in office with diagnosis of hypertension (Acute) Scleroderma (Acute) Leg weakness, bilateral (Acute) Raynaud phenomenon (Acute) Medical History ADD (attention deficit disorder) 05/22/19 PHQ 9=13. ASRS 24/36, . Suspect ADD, discussed with patient, plan to check labs today and follow-up in 1 week to discuss medication options 05/29/19 PHQ 9=19. Deteriorated, discussed discussed options including Strattera, Wellbutrin, stimulant medication, she is leaning toward Wellb utrin, we discussed use, rationale and side effects. She will discuss with her and get back to me 06/26/2019 improved with Strattera 25, continue, discussed increasing dose when she feels appropriate, follow-up 4 to 6 weeks, sooner if needed 07/31/2019 improved and stable on 10 mg of Strattera, she would at some point consider going up on the dose should the 10 mg stop working, we will di scussed that if the time occurs. Follow-up in 3 months for physical and follow-up on ADD, follow-up sooner for concerns or questions 10/29/2019 stable on Strattera 10, continue dose and follow-up next available Sunday for physical 11/14/2019 stable on Strattera 10, follow-up after the end of the semester, sooner if needed 03/19/2020. Deteriorated slightly, start Strattera twice a day, discussed po ssible side effects, follow-up 6 months, sooner if needed 05/21/2020 stable on Strattera 10 twice a day, refilled, keep scheduled follow-up appointment for 08/12/2020 okay to take Strattera twice a day as before, do not believe this is causing/contributing elevated blood pressure Carpal tunnel syndrome Encounter for long-term current use of high risk medication Joint pain 06/22/2020 check labs, discussed differential, consult with rheumatology Leg weakness, bilateral Raynaud phenomenon Scleroderma Raynaud's syndrome, positive biomarkers. No evidence of Raynaud's crisis. Seasonal allergies Tachycardia with hypertension Vaginal discharge Surgical History No pertinent past surgical history Family History Family/Other Arthritis Aunt ADD (attention deficit disorder) Cousin Grandmother Diabetes Maternal & Paternal Stroke Paternal Brother High blood pressure Father High blood pressure Grandfather Heart attack Paternal Son ADD (attention deficit disorder) Social History adopted: No caregiver/support person: No foster care: No household members: family housing: house lives independently: Yes marital status: education level: college service: No group home: No occupational status: employed and other occupation: SAHM/Substitute occupational exposures/hazards: No pets and animals: Yes pets and animals: dog(s) leisure activities: exercise hx recent travel: No sexually active: Yes smoking status: Never smoker alcohol intake frequency: does not drink substance use type: does not use MEDS/ALLERGIES Home Medications and Allergies Home Medications Medication Instructions Recorded Confirmed Type multivitamin 1 tab PO QAM tab 05/19/19 10/03/20 History triamcinolone acetonide 55 mcg 1 spray INTRANASAL QDAY PRN 09/02/20 10/03/20 History nasal spray aerosol atomoxetine 10 mg capsule 10 mg PO QAM #60 cap 09/10/20 10/03/20 Rx mycophenolate mofetil 500 mg tablet See Rx Instructions .ROUTE 07/07/21 07/25/21 Rx .COMPLEX #120 tab captopril 25 mg tablet 12.5 mg PO Q12H #90 tab 10/03/20 10/03/20 Rx Allergies Allergy/AdvReac Type Severity Reaction Status Date / Time cat dander Allergy Unknown itchy Verified 10/03/20 19:20 eyes, nose, throat copper Allergy Unknown rash Verified 10/03/20 19:20 Nickel Allergy Unknown rash Verified 10/03/20 19:20 Physical Examination Vital Signs Vital signs: Temp Pulse Resp BP Pulse Ox 37.2 C 98 H 22 132/93 100 10/04/20 04:01 10/04/20 06:00 10/04/20 06:00 10/04/20 06:00 10/04/20 06:00 General Appearance General appearance: well-developed, well-nourished, appears started age and anxious EENT EENT: ATNC, PERRL and mucous membranes moist Neck Neck: no JVD, no carotid bruit and supple Respiratory Respiratory: clear Cardiovascular Cardiology: no murmurs, no rub, no gallops, no edema, rapid rhythm, normal S1 an d split S1 Gastrointestinal Gastrointestinal: normoactive bowel sounds Integumentary Integumentary: no rash Neurologic Neurologic: no focal deficit, no asterixis, alert and oriented x3 and CN 3-12 intact Musculoskeletal Musculoskeletal: no deformities, no erythema, no cyanosis and no clubbing Psychiatric Psychiatric: cooperative Results Lab Results Result Diagrams: 10/05/20 05:20 10/05/20 05:20 Lab results: Most recent lab results Calcium 8.2 mg/dL (8.6-10.4) L 10/03/20 21:48 A/P Assessment and plan (1) Hypertension: Status: Acute Qualifiers: Hypertension type: unspecified secondary hypertension Qualified Code(s): I15.9 - Secondary hypertension, unspecified (2) Adjustment disorder with mixed anxiety and depressed mood: Status: Chronic Comment: 09/08/2020 she has had significant stress over the last 18 months or longer related to personal decisions, (3) Scleroderma: Status: Acute Comment: Raynaud's syndrome, positive biomarkers. No evidence of Raynaud's crisis. Narrative A/P Narrative: Assessment : 1. This seems to be an accelerated phase of hypertension, perhaps driven by anxiety in the setting of chronic hypertension. As an outpatient adjusting her Strattera downward has had little influence on her blood pressure and it was during this time that her blood pressure began to increase in fact. 2. Diagnostic criteria for scleroderma renal crisis include the fall: Abrupt onset or marked worsening of hypertension Acute onset of renal insufficiency Normal urinary sediment is common with some degree of proteinuria occasionally up to a gram MAHA may be present Risk factors include diffuse skin involvement, prednisone (perhaps cyclosporine) therapy, tendon friction rubs, and the presence of an auto antibody (59% of scleroderma patients with SRC and 12% with no evidence of SRC with positive anti-RNA polymerase 3 antibodies) been reported At this point, I do not believe patient scleroderma renal crisis, and favor accelerated hypertension Plan: 1. Control blood pressure with captopril 12.5 to 25 mg po q 6 hr. 2. Okay for transfer to [facility] floor 3. Adjust blood pressure medications tomorrow prior to discharge 4. Follow-up as an with serial blood terminations, home blood pressure monitoring, and serial labs including urinalysis and random protein and random protein to creatinine ratio Time Spent With Patient Time: Total time spent is greater than 50% in coordination of care (as documented) at patient's floor/unit and/or counseling patient: Total time spent with greater than 50% in coordination of care (as documented) a t patient's floor/unit and/or counseling patient:: Greater than 35 minutes
[2020-10-04 08:43] LABS: ALT/SGPT 14 U/L (<40); AST/SGOT 18 U/L (<32); Albumin 3.8 gm/dL (3.2-5.2); Alkaline Phosphatase 61 U/L (39-117); Bilirubin,Total 0.3 mg/dL (0.1-1.0); Blood Urea Nitrogen 9 mg/dL (6-20); Calcium 8.9 mg/dL (8.6-10.4); Carbon Dioxide 21 mmol/L (22-30); Chloride 105 mmol/L (96-108); Globulin 1.9 gm/dL (2.2-3.7); Glomerular Filtration Rate 112; Glucose 86 mg/dL (70-105)
--- NOTE | 2020-10-04 08:59 | Internal Med Progress Note ---
SUBJECTIVE Subjective Patient information: Note initiated : 10/04/20 at 8:56 am Service Date, if different from initiated Date: [] Patient: Yulissa Kern 34 y/o F admitted on 10/03/20 for racing heart all day. Chief Complaint: [scleroderma with hypertension] 10/04/20: Blood pressure improves overnight with latest BP 129/99mmHg this morning. Heart rate improved to 89 bpm. No other major overnight events. Patient currently denies any chest pain, palpitation, or SOB. Denies headache or dizziness or lightheadedness. Constitutional Vitals: Vital Signs Temp Pulse Resp BP Pulse Ox 36.6 C 89 16 129/99 99 10/04/20 08:00 10/04/20 08:00 10/04/20 08:00 10/04/20 08:00 10/04/20 08:00 Period Temp Pulse Resp BP Sys/Gray Pulse Ox Last 24 Hr 36.6 C-37.2 C 89-153 10-29 120-180/76-117 98-100 Intake and Output 10/03/20 10/04/20 10/04/20 21:59 05:59 13:59 Intake Total 1000 240 Output Total 800 Balance 1000 -560 Weight 63.503 kg 65.091 kg Intake & Output: Intake & Output 10/03/20 10/04/20 10/04/20 21:59 05:59 13:59 Intake Total 1000 240 Output Total 800 Balance 1000 -560 Weight 63.503 kg 65.091 kg Intake: IV 1000 Sodium Chloride 0.9% 1,000 ml @ 1000 Wide Open IV BOLUS ONE Rx#: [id number] Oral 240 Output: Void Amount 800 Other: Meal [place] with crackers Percent of Meal Consumed 100% Feeding Ability Independent Urine Appearance Clear Urine Color Bright Yellow Urine Odor Normal General appearance: cooperative and no acute distress Head Head exam: Present atraumatic and normocephalic Eye Eye exam: Present EOMI and PERRL ENT ENT exam: Present mucous membranes moist, normal exam and normal external ear exam Neck Neck exam: Present normal inspection; Absent lymphadenopathy, tenderness and thyromegaly Respiratory Respiratory exam: Absent accessory muscle use, respiratory distress and wheezes Cardiovascular Cardiovascular exam: Present normal rate and rhythm; Absent JVD GI/Abdominal GI/Abdominal exam: Present normal bowel sounds and soft; Absent organomegaly and tenderness Extremities Exam Extremities exam: Present full ROM, normal capillary refill and normal inspection; Absent tenderness Neurological Exam Neurological exam: Present alert, CN II-XII intact and oriented X3; Absent motor sensory deficit Psychiatric Psychiatric exam: Present normal affect and normal mood; Absent anxious and depressed Skin Skin exam: Present dry and intact OBJ DATA Labs CBC & Chem 7: 10/04/20 05:13 10/04/20 05:13 Labs: Abnormal Lab Results 10/04/20 10/04/20 10/03/20 05:13 05:13 21:48 RBC 3.85 L Hct 35.6 L Carbon Dioxide 21 L Calcium 8.2 L Total Protein 5.7 L 5.8 L Globulin 1.9 L Urine Ketones Ur Random Creatinine 10/03/20 10/03/20 20:57 20:56 RBC Hct Carbon Dioxide Calcium Total Protein Globulin Urine Ketones 20 A Ur Random Creatinine 26.6 L Meds: Medications Acetaminophen (Acetaminophen 325 Mg Tablet) 650 mg PO Q6HP PRN; Protocol PRN Reason: Per Pain Protocol/Fever > 101 Last Admin: 10/04/20 00:54 Dose: 650 mg Documented by: Captopril (Captopril 12.5 Mg Tablet) 12.5 mg PO TID [facility] Last Admin: 10/04/20 08:29 Dose: 12.5 mg Documented by: Docusate Sodium (Docusate Sodium 100 Mg Capsule) 100 mg PO BID [facility] Last Admin: 10/04/20 08:43 Dose: 100 mg Documented by: Enoxaparin Sodium (Enoxaparin 40 Mg/0.4 Ml Syringe) 40 mg SQ DAILY [facility] Last Admin: 10/04/20 08:43 Dose: 40 mg Documented by: Iron Carb/Multivit/[place]/Folic Acid (Multivit,Ther Iron,Ca,Fa & Min 1 Tablet) 1 tab PO QAM [facility] Last Admin: 10/04/20 08:42 Dose: 1 tab Documented by: Lactulose (Lactulose 20 Gm/30 Ml Oral.Aimee) 10 gm PO DAILYP PRN PRN Reason: Constipation Metoprolol Tartrate (Metoprolol Tartrate 5 Mg/5 Ml Vial) 5 mg IV Q5M PRN PRN Reason: Tachyarrhythmias Metoprolol Tartrate (Metoprolol Tartrate 25 Mg Tablet) 25 mg PO BID [facility] Last Admin: 10/04/20 08:42 Dose: 25 mg Documented by: Mycophenolate Mofetil (Mycophenolate 250 Mg Capsule) 500 mg PO BID@0700,2000 [facility] Ondansetron HCl (Ondansetron 4 Mg/2 Ml Vial) 4 mg IV Q4HP PRN; Protocol PRN Reason: Nausea And Vomiting Atomoxetine [ Strattera] 10 Mg Capsule 1 dose PO QAM ROXANN Triamcinolone Acetonide [Nasacort] Familia Inh 1 dose FAMILIA DAILYP PRN PRN Reason: Allergic Symptoms Senna (Sennosides 1 Tablet) 2 tab PO HSP PRN PRN Reason: Constipation Sodium Chloride (0.9 % Sodium Chloride 10 Ml Syringe) 10 ml IV Q8 ROXANN Last Admin: 10/04/20 05:15 Dose: 10 ml Documented by: A/P Assessment and plan (1) ADD (attention deficit disorder): Status: Chronic Comment: 05/22/19 PHQ 9=13. ASRS 2436, 1336. Suspect ADD, discussed with patient, plan to check labs today and follow-up in 1 week to discuss medication options 05/29/19 PHQ 9=19. Deteriorated, discussed discussed options including Strattera, Wellbutrin, stimulant medication, she is leaning toward Wellbutrin, we discussed use, rationale and side effects. She will discuss with her and get back to me 06/26/2019 improved with Strattera 25, continue, discussed increasing dose when she feels appropriate, follow-up 4 to 6 weeks, sooner if needed 07/31/2019 improved and stable on 10 mg of Strattera, she would at some point consider going up on the dose should the 10 mg stop working, we will discussed that if the time occurs. Follow-up in 3 months for physical and follow-up on ADD, follow-up sooner for concerns or questions 10/29/2019 stable on Strattera 10, continue dose and follow-up next available Sunday for physical 11/14/2019 stable on Strattera 10, follow-up after the end of the semester, sooner if needed 03/19/2020. Deteriorated slightly, start Strattera twice a day, discussed possible side effects, follow-up 6 months, sooner if needed 05/21/2020 stable on Strattera 10 twice a day, refilled, keep scheduled follow-up appointment for 08/12/2020 okay to take Strattera twice a day as before, do not believe this is causing/contributing elevated blood pressure (2) Scleroderma: Status: Acute Comment: Raynaud's syndrome, positive biomarkers. No evidence of Raynaud's crisis. (3) Tachycardia with hypertension: Status: Acute (4) Hypertension: Status: Acute Narrative A/P Narrative: Assessment and Plans: 1. Scleroderma with hypertension and tachycardia: Stays in inpatient PCU with cardiac monitoring Consult gilberto Patino. appreciated Metoprolol tartrate 25mg PO BID scheduled Lopressor 5mg IV q5min PRN HR>=120bpm, hold if SBP<90 and/or DBP<50mmHg Captopril 12.5mg PO q8hr Continue CellCept 2. ADD: Continue Atomoxetine GI ppx: not currently indicated DVT ppx: Lovenox Code status: Full Prognosis: guarded Disposition: inpatient PCU Time Spent With Patient Time: Total time spent is greater than 50% in coordination of care (as documented) at patient's floor/unit and/or counseling patient: Total time spent with greater than 50% in coordination of care (as documented) at patient's floor/unit and/or counseling patient:: 15 - 24 minutes QUALITY Stroke Symptom Onset Unknown: No VTE Deep Vein Thrombosis/Pulmonary Embolism Present on Admission: No
[2020-10-04] MEDS ORDERED: DOCUSATE SODIUM 100 MG CAPSULE PO SCH (09:00)
[2020-10-04] MEDS ORDERED: ENOXAPARIN 40 MG/0.4 ML SYRINGE SQ SCH (09:00)
[2020-10-04] MEDS ORDERED: METOPROLOL TARTRATE 25 MG TABLET PO SCH (09:00)
[2020-10-04] MEDS ORDERED: CAPTOPRIL 12.5 MG TABLET PO SCH ×2 (09:00→12:00)
[2020-10-04] MEDS ORDERED: MULTIVIT,THER IRON,CA,FA & MIN 1 TABLET PO SCH (09:00)
[2020-10-04] MEDS ORDERED: ATOMOXETINE 10 MG PO SCH (09:00)
[2020-10-04] MEDS ORDERED: METOPROLOL TARTRATE 50 MG TABLET PO SCH (09:00)
[2020-10-04] MEDS ORDERED: METOPROLOL TARTRATE 5 MG/5 ML VIAL IV PRN (10:48)
[2020-10-04] MEDS ORDERED: ONDANSETRON 4 MG/2 ML VIAL IV PRN (10:48)
[2020-10-04] MEDS ORDERED: SENNOSIDES 1 TABLET PO PRN (10:48)
[2020-10-04] MEDS ORDERED: LACTULOSE 20 GM/30 ML ORAL.SOL PO PRN (10:48)
[2020-10-04] MEDS ORDERED: ACETAMINOPHEN 325 MG TABLET PO PRN (10:48)
[2020-10-04] MEDS: CAPTOPRIL 12.5 MG TABLET PO SCH ×3 (12:02→23:57)
--- NOTE | 2020-10-04 12:50 | EKG ---
[facility] Test Date: 2020-10-03 Pat Name: Yulissa Kern Department: ED Room: Gender: Female Animal Therapist: ashkan HOB: 1985 Requested By: Mak Haddad Order Number: [id number] Reading MD: Dashawn Jose M.D. Measurements Intervals [place] Rate: 138 P: 51 RI: 120 QRS: -55 QRSD: 91 T: 31 QT: 296 QTc: 449 Interpretive Statements Age not entered, assumed to be 50 years old for purpose of ECG interpretation Sinus tachycardia Anteroseptal infarct, age indeterminate NO PRIOR TRACING FOR COMPARISON ABNORMAL ECG Electronically Signed On 10-04-2020 12:50:04 PDT by Dashawn Jose M.D. /[id number]
[2020-10-04] MEDS: MYCOPHENOLATE 250 MG CAPSULE PO SCH (19:59)
[2020-10-04] MEDS: METOPROLOL TARTRATE 25 MG TABLET PO SCH (21:25)
[2020-10-04] MEDS: DOCUSATE SODIUM 100 MG CAPSULE PO SCH (21:25)
[2020-10-05 06:58] LABS: Basophils # (Auto) 0.04 K/mcL (0.00-0.20); Basophils % (Auto) 0.4 % (0.0-2.0); Eosinophils # (Auto) 0.14 K/mcL (0.00-0.70); Eosinophils % (Auto) 1.3 % (0.0-7.0); Hematocrit 38.5 % (36.0-48.0); Hemoglobin 12.9 g/dL (12.0-15.0); Lymphocytes # (Auto) 2.54 K/mcL (1.50-4.80); Mean Cell Volume 94.1 fL (80.0-100.0); Mean Corpuscular HGB Conc 33.5 g/dL (31.0-36.0); Mean Platelet Volume 9.8 fL (7.4-10.4); Monocytes # (Auto) 0.79 K/mcL (0.10-0.90); Monocytes % (Auto) 7.1 % (1.0-12.0); Neutrophils % (Auto) 68.2 % (38.0-78.0); Platelet Count 349 K/mcL (140-440); RBC 4.09 M/mcL (4.00-5.20); Red Cell Distribution Width 14.1 % (11.5-14.5); WBC 11.1 K/mcL (4.5-11.0)
[2020-10-05 07:24] LABS: ALT/SGPT 33 U/L (<40); AST/SGOT 36 U/L (<32); Albumin 3.7 gm/dL (3.2-5.2); Albumin/Globulin Ratio 1.5 (1.0-2.3); Alkaline Phosphatase 64 U/L (39-117); Bilirubin,Total 0.5 mg/dL (0.1-1.0); Blood Urea Nitrogen 11 mg/dL (6-20); Carbon Dioxide 25 mmol/L (22-30); Chloride 103 mmol/L (96-108); Globulin 2.5 gm/dL (2.2-3.7); Glomerular Filtration Rate 112; Glucose 84 mg/dL (70-105)
[2020-10-05] MEDS: CAPTOPRIL 12.5 MG TABLET PO SCH (07:26)
[2020-10-05] MEDS: MYCOPHENOLATE 250 MG CAPSULE PO SCH (07:27)
[2020-10-05] MEDS: METOPROLOL TARTRATE 25 MG TABLET PO SCH (07:29)
[2020-10-05] MEDS: 0.9 % SODIUM CHLORIDE 10 ML SYRINGE IV SCH (07:30)
[2020-10-05] MEDS: DOCUSATE SODIUM 100 MG CAPSULE PO SCH (07:30)
--- NOTE | 2020-10-05 08:08 | Nephrology Progress Note ---
SUBJECTIVE Subjective Patient information: Note initiated : 10/05/20 at 8:02 am Service Date, if different from initiated Date: [] Patient: Yulissa Kern 34 y/o F admitted on 10/03/20 for racing heart all day. Chief Complaint: [as above] S/E/DR 34-year-old woman with a diagnosis of scleroderma and accelerated hypertension with concern for renal scleroderma crisis. Is admitted and treated with captopril due to the vast clinical experience in RSC. Other possibilities of accelerated hypertension are present including anxiety and medical therapy for ADD. During the school year she is milligrams twice a day of Strattera, now notes 10 mg a day which had no effect on her blood pressure. Both her tachycardia and blood pressure have improved with captopril 12 and half milligrams every 6 hours. In my mind she does not feel diagnostic criteria for RSC given the absence of any decline in GFR, development of proteinuria, or other associated signs and symptoms. Her risk factor for the development of RSC is a positive RNA polymerase III Abs Laboratory Tests 10/05/20 05:20 Sodium 137 Potassium 3.9 Chloride 103 Carbon Dioxide 25 BUN 11 Creatinine 0.7 Glucose 84 Calcium 9.0 Current Medications Acetaminophen (Acetaminophen 325 Mg Tablet) 650 mg PO Q6HP PRN; Protocol PRN Reason: Per Pain Protocol/Fever > 101 Last Admin: 10/04/20 16:41 Dose: 650 mg Documented by: Captopril (Captopril 12.5 Mg Tablet) 12.5 mg PO Q6 [facility] Last Admin: 10/05/20 07:26 Dose: 12.5 mg Documented by: Docusate Sodium (Docusate Sodium 100 Mg Capsule) 100 mg PO BID [facility] Last Admin: 10/05/20 07:30 Dose: Not Given Documented by: Enoxaparin Sodium (Enoxaparin 40 Mg/0.4 Ml Syringe) 40 mg SQ DAILY [facility] Last Admin: 10/05/20 07:32 Dose: Not Given Documented by: Iron Carb/Multivit/[place]/Folic Acid (Multivit,Ther Iron,Ca,Fa & Min 1 Tablet) 1 tab PO QAM [facility] Last Admin: 10/05/20 07:27 Dose: 1 tab Documented by: Lactulose (Lactulose 20 Gm/30 Ml Oral.Aimee) 10 gm PO DAILYP PRN PRN Reason: Constipation Metoprolol Tartrate (Metoprolol Tartrate 25 Mg Tablet) 25 mg PO BID [facility] Last Admin: 10/05/20 07:29 Dose: 25 mg Documented by: Metoprolol Tartrate (Metoprolol Tartrate 5 Mg/5 Ml Vial) 5 mg IV Q5M PRN PRN Reason: Tachyarrhythmias Mycophenolate Mofetil (Mycophenolate 250 Mg Capsule) 1,000 mg PO BID@0700,2000 [facility] Last Admin: 10/05/20 07:27 Dose: 1,000 mg Documented by: Ondansetron HCl (Ondansetron 4 Mg/2 Ml Vial) 4 mg IV Q4HP PRN; Protocol PRN Reason: Nausea And Vomiting Atomoxetine [ (Strattera] 10 Mg Cap) 1 dose PO QAM [facility] Last Admin: 10/05/20 07:29 Dose: 1 dose Documented by: Triamcinolone Acetonide [Nasacort] Familia Inh 1 dose FAMILIA DAILYP PRN PRN Reason: Allergic Symptoms Senna (Sennosides 1 Tablet) 2 tab PO HSP PRN PRN Reason: Constipation Sodium Chloride (0.9 % Sodium Chloride 10 Ml Syringe) 10 ml IV Q8 [facility] Last Admin: 10/05/20 07:30 Dose: Not Given Documented by: Constitutional Vitals: Vital Signs Temp Pulse Resp BP Pulse Ox 36.8 C 75 12 110/69 97 10/05/20 03:17 10/05/20 03:17 10/05/20 03:17 10/05/20 03:17 10/05/20 03:17 Period Temp Pulse Resp BP Sys/Gray Pulse Ox Last 24 Hr 36.4 C-36.9 C 75-93 12-18 109-133/69-100 97-100 Intake and Output 10/04/20 10/05/20 10/05/20 21:59 05:59 13:59 Intake Total 480 350 Balance 480 350 Weight 64.41 kg Intake & Output: Intake & Output 10/04/20 10/05/20 10/05/20 21:59 05:59 13:59 Intake Total 480 350 Balance 480 350 Weight 64.41 kg Intake: Oral 480 350 Other: # Voids 1 1 General appearance: average body habitus and no acute distress Head Head exam: Present atraumatic and normocephalic Eye Eye exam: Present EOMI and PERRL; Absent scleral icterus ENT ENT exam: Present mucous membranes moist Neck Neck exam: Present full ROM and normal inspection; Absent meningismus Respiratory Respiratory exam: Present normal respiratory exam Cardiovascular Cardiovascular exam: Present normal rate and rhythm, +S1 and +S2; Absent tachycardia GI/Abdominal GI/Abdominal exam: Present normal bowel sounds and soft; Absent bruit Extremities Exam Extremities exam: Present full ROM and normal inspection; Absent calf tenderness, pedal edema and tenderness Neurological Exam Neurological exam: Present alert, CN II-XII intact, normal gait and oriented X3 Psychiatric Psychiatric exam: Present anxious Skin Skin exam: Present normal color; Absent cyanosis, erythema, petechiae and rash Additional comments: While I cannot detect changes of scleroderma in the periorbital, facial, perioral, neck, or extremities... Patient reports progressive stiffness of her skin with time and the loss of wrinkling in her face. Rheumatology is reported some corkscrew type capillary changes in her nails consistent with scleroderma. A/P Narrative A/P Narrative: Assessment and plan (1) Hypertension: (2) Adjustment disorder with mixed anxiety and depressed mood: (3) Scleroderma: Narrative A/P Narrative: Assessment : 1. This seems to be an accelerated phase of hypertension, perhaps driven by anxiety in the setting of chronic hypertension. As an outpatient adjusting her Strattera downward has had little influence on her blood pressure and it was during this time that her blood pressure began to increase in fact. 2. Diagnostic criteria for scleroderma renal crisis include the fall: Abrupt onset or marked worsening of hypertension Acute onset of renal insufficiency Normal urinary sediment is common with some degree of proteinuria occasionally up to a gram MAHA may be present Risk factors include diffuse skin involvement, prednisone (perhaps cyclosporine) therapy, tendon friction rubs, and the presence of an auto antibody (59% of scleroderma patients with SRC and 12% with no evidence of SRC with positive anti-RNA polymerase 3 antibodies) been reported At this point, I do not believe patient scleroderma renal crisis, and favor accelerated hypertension Plan: 1. Blood pressure controlled with captopril 12.5 q6 hr and metoprolol 25 mg po q12 hr ( mostly for tachycardia) 2. Okay to discharge as she has follow up with me next week 3. Adjust blood pressure medications on prn basis 4. Follow-up as an with serial blood terminations, home blood pressure monitoring, and serial labs including urinalysis and random protein and random protein to creatinine ratio 5. Told patient to return to BID Strattera dosing Time Spent With Patient Time: Total time spent is greater than 50% in coordination of care (as documented) at patient's floor/unit and/or counseling patient: Total time spent with greater than 50% in coordination of care (as documented) at patient's floor/unit and/or counseling patient:: 25 - 35 minutes
[2020-10-05] MEDS ORDERED: MULTIVIT,THER IRON,CA,FA & MIN 1 TABLET PO SCH (09:00)
[2020-10-05] MEDS ORDERED: ENOXAPARIN 40 MG/0.4 ML SYRINGE SQ SCH (09:00)
[2020-10-05] MEDS ORDERED: ATOMOXETINE 10 MG PO SCH (09:00)
--- NOTE | 2020-10-05 09:01 | Discharge Summary ---
Discharge Provider Provider Patient information: Note initiated : 10/05/20 at 8:58 am Service Date, if different from initiated Date: [] Patient: Yulissa Kern 34 y/o F admitted on 10/03/20 for racing heart all day. Chief Complaint: [tachycardia and hypertension] Date of admission: 10/03/20 22:19 Discharge date: 10/05/20 Primary care physician: EJ Lynn Consults: 10/03/20 Consult to Physician [CONS] Stat Comment: Consulting Provider: Magnus Gimenez Reason For Exam: Physician to Consult Consult to Physician [CONS] Stat Comment: Consulting Provider: Nathaniel Scott Reason For Exam: Physician to Consult 10/03/20 22:22 Consult to Physician [CONS] Stat Comment: Consulting Provider: Magnus Gimenez Reason For Exam: Physician to Consult Discharge Meds Discharge Medications Home Medications multivitamin 1 tab PO QAM tab 05/19/19 [History Confirmed 10/03/20 Last Taken 10/02/20 08:00] triamcinolone acetonide 55 mcg nasal spray aerosol 1 spray INTRANASAL QDAY PRN 09/02/20 [History Confirmed 10/03/20 Last Taken 07/10/20 08:00] atomoxetine 10 mg capsule 10 mg PO QAM #60 cap 09/10/20 [Rx Confirmed 10/03/20 Last Taken Unknown] mycophenolate mofetil 500 mg tablet See Rx Instructions .ROUTE .COMPLEX #120 tab 09/15/20 [Rx Confirmed 10/03/20 Last Taken Unknown] captopril 12.5 mg PO Q6 #60 tab 10/05/20 [Rx Last Taken Unknown] metoprolol tartrate 25 mg PO BID #60 tab 10/05/20 [Rx Last Taken Unknown] COURSE Hospital Course Hospital course: Patient was admitted on October 03, 2020 for tachycardia and hypertension. Medications including metoprolol tartrate 25 mg p.o. twice daily and captopril 12.5 mg p.o. every 6 hours were started and patient's heart rate and blood pressure were subsequently being controlled. Patient has reached clinical stability on third day hospitalization and decision was made to discharge her home with prescriptions of metoprolol tartrate and captopril sent to pharmacy. Follow-up appointment with PCP rheumatology and nephrology made for her. All questions were answered prior to patient being physically discharged. Discharge diagnosis: hypertension and tachycardia Time Spent with Patient Time attestation: Total time spent providing and/or coordinating discharge services: Patient was admitted on October 03, 2020 for tachycardia and hypertension. Medications including metoprolol tartrate 25 mg p.o. twice daily and captopril 12.5 mg p.o. every 6 hours were started and patient's heart rate and blood pressure were subsequently being controlled. Patient has reached clinical stability on third day hospitalization and decision was made to discharge her home with prescriptions of metoprolol tartrate and captopril sent to pharmacy. Follow-up appointment with PCP rheumatology and nephrology made for her. All questions were answered prior to patient being physically discharged. EXAM Constitutional Vitals: Temp Pulse Resp BP Pulse Ox 35.7 C L 84 12 114/69 95 10/05/20 08:00 10/05/20 08:00 10/05/20 08:00 10/05/20 08:00 10/05/20 08:00 General appearance: cooperative and no acute distress Head Head exam: Present atraumatic and normocephalic Eye Eye exam: Present EOMI and PERRL ENT ENT exam: Present mucous membranes moist, normal exam and normal external ear exam Neck Neck exam: Present normal inspection; Absent lymphadenopathy, tenderness and thyromegaly Respiratory Respiratory exam: Absent accessory muscle use, respiratory distress and wheezes Cardiovascular Cardiovascular exam: Present normal rate and rhythm; Absent JVD GI/Abdominal GI/Abdominal exam: Present normal bowel sounds and soft; Absent organomegaly and tenderness Extremities Exam Extremities exam: Present full ROM, normal capillary refill and normal inspection; Absent tenderness Neurological Exam Neurological exam: Present alert, CN II-XII intact and oriented X3; Absent motor sensory deficit Psychiatric Psychiatric exam: Present normal affect and normal mood; Absent anxious and depressed Skin Skin exam: Present dry and intact Discharge Data Data Completed and Pending Labs on day of discharge: Labs from last 24 hours 10/05/20 10/05/20 05:20 05:20 WBC 11.1 H RBC 4.09 Hgb 12.9 Hct 38.5 MCV 94.1 MCH 31.5 MCHC 33.5 RDW 14.1 Plt Count 349 MPV 9.8 Neut % (Auto) 68.2 Lymph % (Auto) 23.0 [place] % (Auto) 7.1 Eos % (Auto) 1.3 Baso % (Auto) 0.4 Lymph # (Auto) 2.54 [place] # (Auto) 0.79 Eos # (Auto) 0.14 Baso # (Auto) 0.04 Absolute Neutrophils 7.55 Sodium 137 Potassium 3.9 Chloride 103 Carbon Dioxide 25 Anion Gap 9.0 BUN 11 Creatinine 0.7 GFR Calculation 112 Glucose 84 Calcium 9.0 Total Bilirubin 0.5 AST 36 H ALT 33 Alkaline Phosphatase 64 Total Protein 6.2 Albumin 3.7 Globulin 2.5 Albumin/Globulin Ratio 1.5 Discharge Plan Patient/Caregiver Discharge Instructions Activity: increase activity as tolerated Diet: Regular Diet Prescriptions: New captopril 12.5 mg Tablet 12.5 mg PO Q6 Qty: 60 RF: 1 metoprolol tartrate 25 mg Tablet 25 mg PO BID Qty: 60 RF: 1 Continued atomoxetine [Strattera] 10 mg capsule 10 mg PO QAM Qty: 60 RF: 2 multivitamin Tablet 1 tab PO QAM RF: 0 mycophenolate mofetil [CellCept] 500 mg tablet See Rx Instructions .ROUTE .COMPLEX Qty: 120 RF: 5 triamcinolone acetonide [Nasacort] 55 mcg aerosol,spray 1 spray intranasal QDAY PRN (Reason: Allergic Symptoms) RF: 0 Discontinued captopril 25 mg tablet 12.5 mg PO Q12H Qty: 90 RF: 0 Follow Up Plan Follow up with: Hailey Penny ARNP [Primary Care Provider] - Magnus Gimenez MD [Physician] - Patient Disposition: Home, Self-Care Prognosis: Fair Rehab Potential: Good I certify that the patient requires SNF services: No Overall status at discharge: patient is back to baseline Discharge Orders: Discharge Order (Routine); Ordered 10/05/20 Ordered By: Nathaniel GALLOWAY VTE Deep Vein Thrombosis/Pulmonary Embolism Present on Admission: No
== END 2020-10-05 10:53 | disposition home or self-care (01) | DRG 310 ==
LOC: ED 19:17 → ICU 22:19 → MEDSUR 10-04 15:40
PROVIDERS: ADMIT Internal Medicine; ATTEND Internal Medicine